=== PATIENT | male | born 1995 | race Caucasian/White ===

== ENCOUNTER 2022-08-15 08:09 | Emergency (ER) | payer MEDICAID ==
[2022-08-15] MEDS ORDERED: HYDROmorphone 0.5 MG/0.5 ML Syringe IVPUSH ONE ×3 (08:52→10:42)
[2022-08-15] MEDS ORDERED: Sodium Chloride 0.9% 10 ML Syringe FLUSH PRN (08:52)
[2022-08-15] MEDS ORDERED: Propofol 200 MG/20 ML SDV ONE (11:27)
[2022-08-15] MEDS ORDERED: Midazolam 1 MG/ML 2 ML SDV ONE (11:27)
[2022-08-15] MEDS ORDERED: Ketamine 500 mg/10 ML MDV ONE (11:28)
[2022-08-15] MEDS ORDERED: Lidocaine 1% 2 ML ONE ×2 (11:28)
== END 2022-08-15 13:30 | disposition home or self-care (01) ==
LOC: JD.ED 08:09
DX: S43.015A Anterior dislocation of left humerus, initial encounter (principal)
CPT/HCPCS: 25605; 73020; 73030; 96374; 96376; 99152; 99153; 99283; J1170; J2250; J2704; J3490; 01620

== ENCOUNTER 2022-08-15 16:32 | Emergency (ER) | payer MEDICAID ==
[2022-08-15] MEDS ORDERED: HYDROmorphone 0.5 MG/0.5 ML Syringe IVPUSH ONE (17:34)
[2022-08-15] MEDS ORDERED: Ketorolac 30 MG/ML SDV IVPUSH ONE (19:29)
[2022-08-15] MEDS ORDERED: Ketamine 500 mg/10 ML MDV ONE (20:37)
[2022-08-15] MEDS ORDERED: Midazolam 1 MG/ML 2 ML SDV ONE (20:38)
[2022-08-15] MEDS ORDERED: Lidocaine 1% 4 ML ONE (20:39)
[2022-08-15] MEDS ORDERED: Propofol 200 MG/20 ML SDV ONE (20:39)
[2022-08-15] MEDS ORDERED: Ondansetron 4 MG/2 ML SDV ONE (20:40)
== END 2022-08-15 21:42 | disposition home or self-care (01) ==
LOC: JD.ED 16:32
DX: S43.015A Anterior dislocation of left humerus, initial encounter (principal); Z88.1 Allergy status to other antibiotic agents; W01.0XXA Fall on same level from slipping, tripping and stumbling without subsequent striking against object, initial encounter
CPT/HCPCS: 23650; 73020; 73030; 96374; 96375; 99283; J1170; J1885; J2250; J2405; J2704; J3490